=== PATIENT | male | born 2000 | race Hispanic/Latino ===

== ENCOUNTER 2020-03-10 12:42 | Emergency (ER) | payer SELFPAY ==
--- NOTE | ~2020-03-10 | XR_ITS ---
EXAMINATION: XR finger 4th LT min 2V DATE: 03/10/2020 13:54 INDICATION: Left hand fourth digit injury. TECHNIQUE: 4 views of left hand fourth digit were obtained. COMPARISON: None. FINDINGS: Bone alignment is normal. No fracture. Joint spaces are well maintained. IMPRESSION: 1. No fracture. Reviewed, dictated and finalized at location A. IMPRESSION: 1. No fracture.
[2020-03-10 13:05] VITALS: BP 129/65; PULSE 79; RESP 18; TEMP 37.1; O2SAT 100
--- NOTE | 2020-03-10 14:43 | ED.WOUNDLAC ---
HPI - Wound/Laceration General Chief Complaint: Wound/Laceration Stated Complaint: left 4th finger lac Time Seen by Provider: 03/10/20 13:07 Source: patient Mode of arrival: ambulatory Limitations: no limitations History of Present Illness HPI narrative: This is a 19-year-old male that presents the emergency department for laceration to left fourth finger sustained just prior to arrival. Reports he was moving a stove and sustained a laceration by a piece of metal on the stove. Reports he is up-to-date on tetanus. Denies decreased range of motion or numbness. Related Data Home Medications Medication Instructions Recorded Confirmed No Home Medications 03/10/20 03/10/20 Allergies Allergy/AdvReac Type Severity Reaction Status Date / Time No Known Allergies Allergy Verified 03/10/20 13:09 Review of Systems Review of Systems: Narrative: CONSTITUTIONAL: Denies fever SKIN: Reports laceration NEUROLOGIC: Denies numbness All systems reviewed & are unremarkable except as noted in HPI and below PMFSH Past Medical History Medical History (Updated 03/10/20 @ 15:38 by Syeda Rosario PA-C) No active medical problems Social History Social History (Updated 03/10/20 @ 14:44 by Syeda Rosario PA-C) Smoking status: Never smoker Exam Narrative: Exam Narrative: GENERAL: Well-appearing, well-nourished, and in no acute distress. HEAD: Normocephalic, atraumatic. EYES: EOMI. EXTREMITIES: Normal range of motion. No edema or obvious deformity. Normal sensation. Left fourth finger palmar surface over DIP joint with 3cm flap laceration into subcutaneous tissue SKIN: Warm, dry, no rash. NEURO: No focal deficits. Alert and oriented x3. PSYCH: Normal mood and affect Course Vital Signs Vital signs: Vital Signs Temperature 98.7 F 03/10/20 13:05 Pulse Rate 79 03/10/20 13:05 Respiratory Rate 18 03/10/20 13:05 Blood Pressure 129/65 03/10/20 13:05 Pulse Oximetry 100 03/10/20 13:05 Temperature 98.7 F 03/10/20 13:05 Pulse Rate 79 03/10/20 13:05 Respiratory Rate 18 03/10/20 13:05 Blood Pressure 129/65 03/10/20 13:05 Pulse Oximetry 100 03/10/20 13:05 Procedures Laceration Laceration 1: Date: 03/10/20 Time: 15:35 Site: hand Side (If applicable): left Size (cm): 3 Description: flap Depth: simple, single layer Local Anesthetic: lidocaine 1% Amount of anesthesia used (mL): 4 Pre-repair: irrigated and wound margins revised (small amount of skin removed that had no subcutaneous tissue connected) ====== Skin Level ====== Skin layer closed with: nylon Size (cm): 5-0 Number of sutures: 3 Technique: simple, interrupted ====== Subcutaneous Layer ====== ====== Muscle Layer ====== ====== Tendon Layer ====== MDM - Wound/Laceration MDM Narrative Medical decision making narrative: Patient presents to the emergency department for laceration to the left fourth finger sustained just prior to arrival. Left fourth finger x-rays without acute findings. Patient is up-to-date on tetanus. Patient's wound was irrigated and closed with sutures. There was a piece of skin that needed removed at the tip of the flap laceration as it did not have any blood supply. Patient and family were educated on wound care. He is to follow-up with primary care doctor. He was given warnings to return to the ER Imaging Data Radiologist's impression: ITS Impressions Finger X-Ray 03/10/20 13:55 IMPRESSION: 1. No fracture. Critical Care Time Critical Care Time Critical Care Time: No Discharge Plan Discharge Clinical Impression: Laceration Patient Disposition: Home, Self-Care Condition: Stable Instructions: Care For Your Stitches (ED), Laceration (ED) Additional Instructions: Return to the emergency department if you experience fever, redness or swelling of your wound, abnorm
[2020-03-10 16:11] VITALS: BP 125/76; PULSE 72; RESP 18; O2SAT 99
== END 2020-03-10 16:13 | disposition home or self-care (01) ==
PROVIDERS: Emergency Provider Emergency Medicine; PCP Registered Nurse
DX: S61.215A Laceration without foreign body of left ring finger without damage to nail, initial encounter (principal); W26.8XXA Contact with other sharp object(s), not elsewhere classified, initial encounter
CPT/HCPCS: 12002; 73140; 99283

== ENCOUNTER 2021-02-25 16:03 | Outpatient (CLI) | payer OTHER, SELFPAY ==
--- NOTE | ~2021-02-25 | XR_ITS ---
XR knee LT min 4V DATE: 02/25/2021 16:33 INDICATION: Left knee medial pain TECHNIQUE: 4 views COMPARISON: None FINDINGS: No fracture or dislocation or joint effusion. No periosteal reaction or bone destruction, r adiopaque intra-articular loose body or chondrocalcinosis. Joint spaces are preserved. IMPRESSION: Negative Reviewed, dictated and finalized at location B. IMPRESSION: Negative
--- NOTE | ~2021-02-25 | XR_ITS ---
XR shoulder LT min 2V DATE: 02/25/2021 16:33 INDICATION: Previous shoulder injury. Sharp pain in the left shoulder joint. TECHNIQUE: 4 views COMPARISON: None FINDINGS: No fracture or dislocation, periosteal reaction or bone destruction or abnormal soft tissue calcification of the left shoulder. IMPRESSION: Negative Reviewed, dictated and finalized at location B. IMPRESSION: Negative
== END 2021-02-25 16:04 | disposition home or self-care (01) ==
LOC: ANHIMG 16:07
PROVIDERS: PCP Registered Nurse; Visit Provider Registered Nurse
DX: M25.512 Pain in left shoulder (principal); M25.562 Pain in left knee
CPT/HCPCS: 73030; 73564

== ENCOUNTER 2021-04-04 13:30 | Outpatient (RCR) | payer OTHER, SELFPAY ==
--- NOTE | 2021-03-12 11:29 | PTOPEVAL ---
PHYSICAL THERAPY EVALUATION 03-12-21 Thank you for referring Wm Simpson to [facility] for the diagnosis of L hip, groin strain. He is scheduled to be seen for therapy? 2 x/week for 4 weeks. Please review, sign, date and return this plan of care DEBRA. I agree with and certify that the following plan of care is medically necessary. Referring Physician Date Attending Provider: Scott Kruger NP Document 03/12/21 10:20 MARIAELENA (Rec: 03/12/21 11:29 MARIAELENA [id number]) Assessment Status Evaluation Outpatient Past Medical History Past Medical History Source of Past Medical History Patient Yes: rib fracture Hx Other Musculoskeletal Disorders Yes: L heel pain; L hip pain; B knee pain; L shoulder pain due to fall; Evaluation Information Problem Diagnosis L groin strain Onset January Subjective Information have been doing alot of Query Text:As Reported By Patient/ training and exercises all Family summer; took week off and went to [place]; returned and played 3 soccer games, without stretching as much as usually did; when playing, standing on L leg and twisted body putting all wt onto L LE- felt pop and pain in hip; went to , rested and did nothing for 2 weeks, felt better, started few days ago, return to gym for some wt exercises and running 1 & 1/2 miles- did OK, sore but not really painful; Diagnostic Tests X-Rays For This Problem Yes: L shoulder and knee xrays negative Previous Treatments Previous Treatments For This Problem previous PT for L knee pain and L shoulder pain Prior Level of Function Activity Level (Last 3 Months) 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
--- NOTE | 2021-03-19 14:53 | PCPTNOTE ---
Patient called & cancelled scheduled appointment this date due to having a soccer game out of town.
--- NOTE | 2021-04-04 14:15 | PTOPEVAL ---
PHYSICAL THERAPY DISCHARGE 04-04-21 Refer to the clinical summary below, for his status today, compared to the initial evaluation. The goals were partially achieved. He is not playing soccer at this time, due to hurting his R knee. Thank you for referring Wm Simpson to [facility].? Please review, sign, date and return this DIscharge Report DEBRA. I agree with and certify that the following plan of care is medically necessary. Referring Physician Date Attending Provider: Scott Kruger NP Document 04/04/21 13:35 MARIAELENA (Rec: 04/04/21 14:15 MARIAELENA [id number]) Assessment Status Discharge Subjective Information Deep reports: only have a Query Text:As Reported By Patient/ little pain in hip with Family sitting and rotate hip out, goes away; they did an ultrasound of hip was nothing there; was cleared to return to soccer, had one practice and hurt R knee, so not playing soccer now; hip feels great and is pleased with how well it is doing; Pain Assessment Timing of Pain Assessment Timing of Pain Assessment Assessment Pain Scale Pain Scale Used Numeric (1 - 10) Self Report Pain Assessment Left Hip(s) Reported Pain Level 2 Pain Description Aching Pain Frequency Chronic,Intermittent Other Pain Description ache in proximal groin Lowest Pain Intensity 0 Greatest Pain Intensity 5 Other Pain Aggravating Factors sitting and ER L hip; sitting and squeeze knees together Pain Score Pain Score 2: Self Report Additional Pain Score Comments reviewed use of heat/ice PRN; stretching, compression hip brace for pain control Interventions Used Interventions Used By Clinicians Exercise Pain Relief Interventions Used By Inactivity/Rest,Position Patient Change Other Alleviating Interventions stretching hip; is not taking any meds for L hip pain Lower Extremity Range of Motion General Lower Extremity Range of Motion Gross Lower Extremity Range of Motion supine: hip IR 20', hamstring Comments stretch with SLR to 70' prone hip IR 25' with hip/knee 90' Lower Extremity Muscle Strength Testing General Lower Extremity Strength Gross Lower Extremity Strength L LE: prone hip extension with knee flexion 90' x 20 reps; supine marching R/L with bridge position;
== END 2021-04-04 17:45 | disposition home or self-care (01) ==
LOC: ANHPT 13:30
PROVIDERS: PCP Registered Nurse; Visit Provider Registered Nurse
DX: S76.012D Strain of muscle, fascia and tendon of left hip, subsequent encounter (principal)
CPT/HCPCS: 97110; 97140; 97161

== ENCOUNTER 2021-06-04 08:47 | Emergency (ER) | payer OTHER, SELFPAY ==
--- NOTE | ~2021-06-04 | XR_ITS ---
EXAMINATION: XR chest 2V DATE: 06/04/2021 09:48 INDICATION: Mid chest pain TECHNIQUE: PA and lateral views of the chest are obtained. COMPARISON: None available FINDINGS: The lungs are free of acute opacities. There is no pleural effusion or pneumothorax. The ca rdiomediastinal silhouette is normal. The visualized bones and soft tissues are unremarkable. IMPRESSION: 1. No acute cardiopulmonary abnormality. Reviewed, dictated and finalized at location B. CLE DESIGNER
[2021-06-04 08:58] VITALS: BP 120/56; PULSE 56; RESP 18; TEMP 35.9; O2SAT 100
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
[2021-06-04] MEDS: IBUPROFEN 600 MG TABLET PO (09:53)
--- NOTE | 2021-06-04 10:33 | ECG_ITS ---
Measurements Intervals [place] Rate: 54 P: 63 LA: 134 QRS: 74 QRSD: 106 T: 47 QT: 426 QTc: 405 Interpretive Statements SINUS BRADYCARDIA INCOMPLETE RIGHT BUNDLE BRANCH BLOCK BORDERLINE ECG Electronically Signed On 06-04-2021 11:07:08 CERTIFIED PERSONAL CHEF by Jimy Masters D.O.
--- NOTE | 2021-06-04 10:37 | PC.NURSE ---
1030- mattie turcios er and speaking with dr mg concerning pts ekg. pt remains stable, and symptomatic.
== END 2021-06-04 10:17 | disposition left against medical advice (07) ==
PROVIDERS: Emergency Provider Nurse Practitioner Family; PCP Registered Nurse
DX: R07.89 Other chest pain (principal); I45.10 Unspecified right bundle-branch block; R00.1 Bradycardia, unspecified
CPT/HCPCS: 71046; 93005; 99203; A9270; G0463

== ENCOUNTER 2022-02-03 15:21 | Emergency (ER) | payer OTHER, SELFPAY ==
--- NOTE | ~2022-02-03 | CT_ITS ---
EXAMINATION: CT abdomen pelvis w con DATE: 02/03/2022 16:27 INDICATION: Right abdominal pain TECHNIQUE: Computed tomography (CT) of the abdomen and pelvis was performed with 100 CC Omnipaque 350 intravenous contrast. Automated exposure control and iterative reconstruction technique were employe d. Exam dose: 359.50 mGy-cm total exam DLP. COMPARISON: None. FINDINGS: The lung bases are clear. Normal heart size. No pericardial or pleural effusion. Liver, gallbladder, bile ducts, spleen, pancreas, pancreatic duct, adrenal glands are unremarkable. Normal caliber of the abdominal aorta. No intraperitoneal or retroperitoneal or pelvic mass lesion o r lymphadenopathy or ascites. Normal appendix. No bowel obstruction or free air. Included skeletal structures are unremarkable. IMPRESSION: Normal appendix Reviewed, dictated and finalized at Location A. Reviewed, dictated and finalized at location A. IMPRESSION: Normal appendix
[2022-02-03 15:28] VITALS: BP 141/76; PULSE 64; RESP 14; TEMP 36.6; O2SAT 100
--- NOTE | 2022-02-03 15:42 | ED.ABDPAIN ---
HPI - Abdominal Pain General Chief Complaint: Abdominal Pain Stated Complaint: ABDOMINAL PAIN Time Seen by Provider: 02/03/22 15:37 Source: RN notes reviewed History of Present Illness HPI narrative: Patient presents emergency room from home for abdominal pain. Patient states pain is located in the right lower quadrant does not radiate described as sharp and stabbing. Patient states pain began 2 days ago. Associate with an episode nausea vomiting 2 days ago but none since. Denies any fevers or chills chest pain shortness of breath diarrhea or any other symptoms states he not taking pain medication today Related Data Allergies Allergy/AdvReac Type Severity Reaction Status Date / Time No Known Allergies Allergy Verified 02/03/22 16:06 Review of Systems Review of Systems: Gen.: Denies fevers or chills ENT: Denies congestion Respiratory: Denies shortness of breath or cough CV: Denies chest pain or palpitations GI: see HPI denies burning, urgency, frequency or hematuria Musculoskeletal: Denies back pain or muscle pain Neuro: Denies numbness, tingling, weakness or focal weakness Skin: Denies rash Except as documented, all other systems reviewed and negative [facility] Past Medical History Medical History No active medical problems Social History Social History Smoking status: Never smoker Exam Narrative: APPEARANCE: No acute distress, nontoxic, resting in bed HEENT: Normocephalic, atraumatic, OMM RESPIRATORY: No respiratory distress, clear to auscultation bilaterally with no rhonchi wheezing or rales CARDIOVASCULAR: RRR s murmur ABDOMINAL: Soft nondistended tender palpation right lower quadrant mild tenderness right upper quadrant and left lower quadrant no tenderness left upper quadrant no rebound or guarding MUSCULOSKELETAl: Moves all extremities. No clubbing, cyanosis or edema. NEURO: Awake and alert. Following commands, speech normal, no focal deficits SKIN:: Warm, dry. Normal Color PSYCHIATRIC: Normal affect/mood Course Course Emergency Course: Upon further discussion patient states he was at a soccer treatment this week and he believes he may strained his abdominal wall after that. States pain is worse with walking and better when he lays down with activation of the abdominal muscle pain does increase Patient states that they are feeling much better at this time. States abdominal pain has resolved. Repeat abdominal exam shows the patient's abdomen to be soft and nontender. Discussed with patient results of workup and diagnosis. Discussed need for follow-up with primary care physician, reasons to return to the emergency department in proper use of medication. Patient understands and agrees to current treatment plan Vital Signs Vital signs: Vital Signs Temperature 97.8 F 02/03/22 15:28 Pulse Rate 64 02/03/22 15:28 Respiratory Rate 14 02/03/22 15:28 Blood Pressure 141/76 H 02/03/22 15:28 Pulse Oximetry 100 02/03/22 15:28 Oxygen Delivery Room Air 02/03/22 15:28 Temperature 97.8 F 02/03/22 15:28 Pulse Rate 64 02/03/22 15:28 Respiratory Rate 14 02/03/22 15:28 Blood Pressure 141/76 H 02/03/22 15:28 Pulse Oximetry 100 02/03/22 15:28 Oxygen Delivery Room Air 02/03/22 15:28 MDM - Abdominal Pain MDM Narrative Medical decision making narrative: Patient's abdomen is soft without significant pain or signs of surgical abdomen on serial exams. Lab and x-ray evaluations are reviewed and patient is felt to be a reasonable candidate for outpatient management. Patient was instructed as to limitations of x-ray and laboratory evaluation and encouraged to return to ED or primary physician for repeat exam in 12 hours if continued or worsening pain Lab Data Result diagrams: 02/03/22 15:33 02/03/22 15:33 Labs: Lab Results 02/03/22 02/03/22
[2022-02-03 15:43] LABS: Basophils Percent Auto 0.3 % (0.2-1.2); Eosinophils Absolute Auto 0.2 K/mm3 (0-0.3); Hematocrit 43.6 % (42.0-52.0); Hemoglobin 14.4 g/dL (14.0-18.0); Immature Granulocyte Absolute 0.02 K/mm3 (0.00-0.031); Immature Granulocyte Percent A 0.2 % (0-0.5); Lymphocytes Absolute Auto 3.17 K/mm3 (0.9-3.2); Lymphocytes Percent Auto 34.1 % (18.3-44.2); Mean Corpuscular Hemoglobin 29.1 pg (26-34); Mean Corpuscular Volume 88.3 fl (80-100); Mean Platelet Volume 10.1 fl (7.4-10.4); Monocytes Absolute Auto 0.6 K/mm3 (0.1-0.6); Monocytes Percent Auto 6.7 % (2.6-8.5); Neutrophils Absolute Auto 5.3 K/mm3 (1.3-6.7); Neutrophils Percent Auto 56.7 % (45.5-73.1); Platelet Count Result 287 k/mm3 (150-375); Red Blood Count 4.94 M/mm3 (4.6-6.20); Red Cell Distribution Width 13.3 % (11.5-14.5); White Blood Count 9.3 K/mm3 (4.5-10.0)
[2022-02-03 15:52] LABS: Alanine Aminotransferase 20 U/L (6-50); Alkaline Phosphatase 69 U/L (38-126); Anion Gap 5 mmol/L (8-16); Aspartate Amino Transferase 38 U/L (17-59); Bilirubin,Total 1.1 mg/dL (0.2-1.3); Blood Urea Nitrogen 19 mg/dL (9-20); Calcium 8.9 mg/dL (8.4-10.2); Carbon Dioxide 29 mmol/L (22-30); Chloride 103 mmol/L (98-107); Estimated CRCL calculation 81 ml/min; Estimated Glomerular Filt Rate > 60; Glucose 107 mg/dL (65-110); Lipase 59 U/L (23-300); Sodium 137 mmol/L (137-145)
[2022-02-03 16:07] LABS: Appearance Urine Clear (Clear); Bilirubin Urine 1+ (Negative); Blood Urine Negative (Negative); Color Urine Yellow (Yellow); Glucose Urine UA Negative (Negative); Ketones Urine 1+ mg/dL (Negative); Leukocyte Esterase Ur Negative LEU/UL (Negative); Nitrate Urine Negative (Negative); Protein Urine Trace mg/dL (Negative); Specific Grav Ur 1.025 (1.001-1.035); Urobilinogen Urine 0.2 mg/dL (<2.0)
[2022-02-03 16:11] LABS: Add Urine Microscopic? YES; Mucus Urine Rare /lpf; Squamous Epithelial Cell Urine Rare /hpf (Few)
[2022-02-03] MEDS: KETOROLAC 30 MG/ML VIAL (*BKC) IV PUSH (16:13)
[2022-02-03] MEDS: SODIUM CHLORIDE 0.9% IV 1,000 ML 999 ML IV CONT (16:14)
== END 2022-02-03 17:11 | disposition home or self-care (01) ==
PROVIDERS: Emergency Provider Emergency Medicine; PCP Registered Nurse
DX: S39.011A Strain of muscle, fascia and tendon of abdomen, initial encounter (principal); X50.9XXA Other and unspecified overexertion or strenuous movements or postures, initial encounter; Y93.66 Activity, soccer
CPT/HCPCS: 36415; 74177; 80053; 81001; 83690; 85025; 87086; 96361; 96374; 99284; J1885; J7030; Q9967

== ENCOUNTER 2023-02-27 18:00 | Emergency (ER) | payer OTHER, SELFPAY ==
[2023-02-27 18:13] VITALS: BP 119/67; PULSE 67; RESP 16; TEMP 36.7; O2SAT 100
[2023-02-27 18:14] VITALS: BP 119/67; PULSE 67; RESP 16; TEMP 36.7; O2SAT 100
--- NOTE | 2023-02-27 18:22 | ECG_ITS ---
Measurements Intervals [place] Rate: 62 P: 63 NM: 138 QRS: 74 QRSD: 107 T: 53 QT: 408 QTc: 415 Interpretive Statements SINUS RHYTHM POSSIBLE LEFT ATRIAL ENLARGEMENT [-0.1mV P WAVE IN V1/V2] INCOMPLETE RIGHT BUNDLE BRANCH BLOCK [90+ ms QRS DURATION, TERMINAL R IN V1/V2, 40+ ms S IN I/aVL/V4/V5/V6] NONSPECIFIC ST ELEVATION [0.05+ mV ST ELEVATION] COMPARED TO ECG 06/04/2021 09:28:33 SIN[address]M NOW PRESENT ST (T WAVE) DEVIATION NOW PRESENT Electronically Signed On 02-28-2023 8:59:16 CDT by Sharlene Stanford M.D.
[2023-02-27 18:24] VITALS: BP 120/56; PULSE 51
[2023-02-27 18:27] VITALS: BP 122/68; PULSE 55
[2023-02-27 18:28] VITALS: BP 116/61; PULSE 60
--- NOTE | 2023-02-27 18:42 | ED.GENADULT ---
HPI - General Adult General Chief complaint: Headache Stated complaint: Headache/Dizziness Time Seen by Provider: 02/27/23 18:30 Source: patient, RN notes reviewed and old records reviewed Mode of arrival: ambulatory Limitations: no limitations History of Present Illness HPI narrative: 22-year-old male presents to the [facility] with complaints of increasing dizziness, headache and unable to play for full soccer matches. Patient states not able to play for more than 60 minutes during soccer has been going on for several weeks, made an appointment with his primary care provider for March 13. Patient states over the last 4 days he has been playing soccer but has had increased dizziness, worse with changing of positions, increase headache that he describes as pounding. States he does get short of breath when playing soccer which she never had issues with in the past. Denies any chest pain or abdominal pain. States when he does play soccer he does become nauseous and vomits. Onset (ago): day(s) Treatments prior to arrival: none Related Data Home Medications Medication Instructions Recorded Confirmed No Home Medications 02/27/23 02/27/23 Allergies Allergy/AdvReac Type Severity Reaction Status Date / Time No Known Allergies Allergy Verified 03/07/22 16:06 Review of Systems Review of Systems: All systems reviewed & are unremarkable except as noted in HPI and below Constitutional: Constitutional: Reports no additional constitutional complaints Eyes: Eyes: Reports no additional eye complaints ENT: Reports system reviewed and no additional complaints, except as documented Cardiovascular: Cardiovascular: Reports no additional cardiovascular complaints, Denies chest pain and Denies dyspnea Respiratory: Respiratory: Reports as per HPI, Denies chest congestion, Denies cough and Reports dyspnea Gastrointestinal: Gastrointestinal: Reports no additional gastrointestinal complaints, Denies abdominal pain, Denies nausea and Denies vomiting Musculoskeletal: Musculoskeletal: Reports no additional musculoskeletal complaints Integumentary/Breasts: Skin/Breast: Reports system reviewed and no additional complaints, except as docu Neurologic: Reports as per HPI, Reports dizziness, Denies syncope, Denies tingling and Denies paresthesias Psychiatric: Psychiatric: Reports no additional psychiatric complaints Allergic/Immunologic: Allergic/Immunologic: Reports no additional allergic/immunologic complaints PMFSH Past Medical History Medical History No active medical problems Social History Social History (Reviewed 02/27/23 @ 19:05 by DOM Garcia Smoking status: Never smoker Comments At the time of my signature, I reviewed and agree with the nursing past medical, surgical, social, and family history. There is no relevant family history pertinent to the patient complaint. Exam Const: General: cooperative, healthy appearing, comfortable, no acute distress, well developed, alert and well nourished Nutritional Appearance: well nourished Orientation/consciousness: patient oriented x3 Limitations: no limitations HENMT: Head: normal to inspection Ears: hearing grossly normal bilaterally and external ears normal Face/Nose/Sinus: Normal external nose present, Normal nares present, Normal nasal mucous membranes and turbinates present and normal facial exam Face and sinus: normal facial exam Mouth: Yes Normal oral and palatal mucosa present, Yes lip normal and Yes moist mucous membranes Throat: posterior oropharynx normal, uvula midline and no uvular edema Eyes: General: appearance normal, both eyes and all related structures Alignment and Position: alignment normal Periorbital: periorbital findings normal Pupils: Equal, round and reactive pupils present EOM: EOMs intact bilaterally Neck: Neck: normal visual inspection, full ROM, no lymphadenopathy and no meningeal
== END 2023-02-27 18:46 | disposition short-term general hospital (02) ==
LOC: EXPCOLL 18:04
PROVIDERS: Emergency Provider Nurse Practitioner; PCP Registered Nurse
DX: R51.9 Headache, unspecified (principal); R42 Dizziness and giddiness; R94.31 Abnormal electrocardiogram [ECG] [EKG]
CPT/HCPCS: 93005; 99213; G0463

== ENCOUNTER 2023-02-27 19:00 | Emergency (ER) | payer OTHER, SELFPAY ==
[2023-02-27] VITALS (17 sets, daily range): BP systolic 104–133; BP diastolic 60–99; PULSE 58–81; RESP 12–20; TEMP 36.5; O2SAT 99–100
--- NOTE | ~2023-02-27 | XR_ITS ---
EXAMINATION: XR chest 2V DATE: 02/27/2023 20:09 INDICATION: Dizziness TECHNIQUE: PA and lateral views of the chest are obtained. COMPARISON: None available FINDINGS: The lungs are free of acute opacities. No pleural effusion or pneumothorax. The cardiomedia stinal silhouette is normal. The visualized bones and soft tissues are unremarkable. IMPRESSION: 1. No acute cardiopulmonary abnormality. Reviewed, dictated and finalized at location F.
--- NOTE | ~2023-02-27 | CT_ITS ---
EXAMINATION: CT brain wo con INDICATION: Dizziness and headache COMPARISON: None TECHNIQUE: Standard unenhanced head CT. The dose-length product (DLP) was 605.33 mGy-cm. The mA was a djusted according to patient size. Iterative reconstruction technique was employed. FINDINGS: There is no intracranial hemorrhage, acute infarction, or abnormal mass lesion. The ventric les are normal. There is no abnormal mass effect or midline shift. The patricio-white matter differentiat ion is normal. The basal cisterns are patent. The orbits are normal. There is mild mucosal thickening of the paranasal sinuses. IMPRESSION: 1. No acute intracranial abnormality. Reviewed, dictated and finalized at location F.
--- NOTE | 2023-02-27 19:30 | ECG_ITS ---
Measurements Intervals [place] Rate: 53 P: 60 RI: 133 QRS: 69 QRSD: 105 T: 42 QT: 414 QTc: 392 Interpretive Statements SINUS BRADYCARDIA POSSIBLE LEFT ATRIAL ENLARGEMENT [-0.1mV P WAVE IN V1/V2] POSSIBLE RIGHT VENTRICULAR CONDUCTION DELAY [RSR (QR) IN V1/V2] ST ELEVATION CONSISTENT WITH INJURY, PERICARDITIS, BRUGADA SYNDROME, OR EARLY REPOLARIZATION [ST ELEVATION W/O NORMALLY INFLECTED T WAVE] COMPARED TO ECG 06/04/2021 09:28:33 ST (T WAVE) DEVIATION MORE PROMINENT Electronically Signed On 02-28-2023 14:59:41 CDT by Sharlene Stanford M.D.
[2023-02-27 20:09] LABS: Basophils Percent Auto 0.3 % (0.2-1.2); Eosinophils Absolute Auto 0.4 K/mm3 (0-0.3); Eosinophils Percent Auto 4.2 % (0-4.4); Hematocrit 44.1 % (42.0-52.0); Hemoglobin 14.9 g/dL (14.0-18.0); Immature Granulocyte Absolute 0.03 K/mm3 (0.00-0.031); Immature Granulocyte Percent A 0.3 % (0-0.5); Lymphocytes Absolute Auto 3.21 K/mm3 (0.9-3.2); Lymphocytes Percent Auto 34.7 % (18.3-44.2); Mean Corpuscular HGB Conc 33.8 g/dl (32-36); Mean Corpuscular Hemoglobin 29.5 pg (26-34); Mean Corpuscular Volume 87.3 fl (80-100); Mean Platelet Volume 10.2 fl (7.4-10.4); Monocytes Absolute Auto 0.4 K/mm3 (0.1-0.6); Monocytes Percent Auto 4.8 % (2.6-8.5); Neutrophils Absolute Auto 5.2 K/mm3 (1.3-6.7); Neutrophils Percent Auto 55.7 % (45.5-73.1); Platelet Count Result 290 k/mm3 (150-375); Red Blood Count 5.05 M/mm3 (4.6-6.20); Red Cell Distribution Width 13.2 % (11.5-14.5); White Blood Count 9.3 K/mm3 (4.5-10.0)
[2023-02-27 20:26] LABS: Alanine Aminotransferase 17 U/L (6-50); Alkaline Phosphatase 77 U/L (38-126); Anion Gap 10 mmol/L (8-16); Aspartate Amino Transferase 22 U/L (17-59); Bilirubin,Total 1.1 mg/dL (0.2-1.3); Blood Urea Nitrogen 17 mg/dL (9-20); Calcium 9.4 mg/dL (8.4-10.2); Carbon Dioxide 27 mmol/L (22-30); Chloride 100 mmol/L (98-107); Estimated Glomerular Filt Rate > 60; Glucose 146 mg/dL (65-110); Magnesium 2.2 mg/dL (1.6-2.3); Potassium 3.9 mmol/L (3.4-5.0); Sodium 137 mmol/L (137-145)
[2023-02-27 20:34] LABS: Troponin I < 0.012 ng/mL (0.000-0.034)
[2023-02-27] MEDS: diphenhydrAMINE HCl INJ 50 MG/ML VIAL 25 MG IV PUSH (20:39)
[2023-02-27] MEDS: METOCLOPRAMIDE HCL INJ 10 MG/2 ML VIAL IV PUSH (20:40)
--- NOTE | 2023-02-27 20:59 | ED.HA ---
HPI - Headache General Chief Complaint: Dizziness Stated Complaint: Dizzy with Headaches Time Seen by Provider: 02/27/23 19:30 History of Present Illness HPI Narrative: 22-year-old male presenting with headaches, he states that he has been having migraines on and off since he was a child, and he has been trying to take Tylenol but has not getting better, he went to urgent care who told him that he needed to go to the hospital due to EKG abnormalities. He has had EKG abnormalities in the past. He describes more shortness of breath especially when he is running or playing soccer, his headache gets worse during this time. Related Data Home Medications Medication Instructions Recorded Confirmed No Home Medications 02/27/23 02/27/23 Allergies Allergy/AdvReac Type Severity Reaction Status Date / Time No Known Allergies Allergy Verified 03/07/22 16:06 Review of Systems Review of Systems: CONST: No fever. HEENT: No sore throat C/V: No chest pain RESP: Dyspnea on exertion GI: Some nausea : No dysuria. M/S: No joint pain. SKIN: No rash. NEURO: Headache without focal numbness or weakness PSYCH: Slightly nervous PMFSH Past Medical History Medical History No active medical problems Social History Social History Smoking status: Never smoker Exam Narrative: EXAMINATION OF ORGAN SYSTEMS/BODY AREAS: Constitutional: Vital signs per nursing GENERAL: Appears somewhat uncomfortable in pain and slightly nervous HEAD: Normal with no signs of head trauma. EYES: EOMI, conjunctiva normal ENT: Hearing grossly intact LUNGS: Nonlabored breathing. HEART: [Regular rate and rhythm] ABD: [Soft], [nontender to palpation] EXT: Normal range of motion, no lower extremity swelling or pain SKIN: [No rashes or lesions.] NEURO: [Alert and oriented x 3. No gross focal sensory or strength deficits.] PSYCH: Slightly anxious affect Course Vital Signs Vital signs: Vital Signs Temperature 97.7 F 02/27/23 19:06 Pulse Rate 61 02/27/23 19:06 Respiratory Rate 12 02/27/23 19:06 Blood Pressure 122/80 02/27/23 19:06 Pulse Oximetry 100 02/27/23 19:06 Oxygen Delivery Room Air 02/27/23 19:06 Temperature 97.7 F 02/27/23 19:06 Pulse Rate 60 02/27/23 22:09 Respiratory Rate 15 02/27/23 22:09 Blood Pressure 104/61 02/27/23 22:09 Pulse Oximetry 100 02/27/23 22:09 Oxygen Delivery Room Air 02/27/23 19:06 MDM - Headache MDM Narrative Medical decision making narrative: 22-year-old male with history of migraines presents to the emergency department for headache, states it is worse than usual and has not getting better with Tylenol; also has been having dyspnea on exertion. Patient is hemodynamically stable. No focal neurological or cranial nerve deficits on exam. No meningeal signs. The headache was gradual in onset, it is not exertional and does not appear consistent with subarachnoid hemorrhage or intracranial bleeding. No trauma. However he states he has never had an imaging before and the headache is worse than usual so I will obtain a CT head. Patient is given headache cocktail including Reglan, Benadryl. EKG: Performed in triage and interpreted by me. Normal sinus rhythm. Rate 62. Normal axis. AK normal. QRS duration normal. QTc normal. No pathologic Q waves. No ST segment elevation or depression to suggest acute ischemia. He does have an incomplete right bundle branch block. HEART score is 1 with no acute ischemic changes on EKG and negative troponin making ACS unlikely. I did see his prior EKG from when he was told he was having a heart attack and this is completely normal showing just benign early repolarization. Wells low risk with negative PERC making PE unlikely. Presentation not consistent with dissection or aneurysm without radiation of pain or pulse deficits. CXR negativ
[2023-02-27 21:03] LABS: Influenza A QL RT-PCR Negative (Negative); Influenza B QL RT-PCR Negative (Negative); RSV RNA, RT-PCR Negative (Negative); SARS-CoV-2 RNA PCR Negative (Negative)
== END 2023-02-27 22:10 | disposition home or self-care (01) ==
PROVIDERS: Emergency Provider Emergency Medicine; PCP Registered Nurse
DX: R51.9 Headache, unspecified (principal); R06.00 Dyspnea, unspecified; I45.10 Unspecified right bundle-branch block; R00.1 Bradycardia, unspecified; R94.31 Abnormal electrocardiogram [ECG] [EKG]
CPT/HCPCS: 36415; 70450; 71046; 80053; 83735; 84484; 85025; 87637; 93005; 96374; 96375; 99284; J1200; J2765